=== PATIENT | female | born 1965 | race Hispanic/Latino ===

== ENCOUNTER → 2019-02-06 | Day surgery (SDC) | payer BC ==
[2019-02-04 15:57] LABS: BASOPHILS # (AUTO) 0.1 (0.0-0.1); BASOPHILS % 0.6 % (0.0-1.0); EOSINOPHILS # (AUTO) 0.1 (0.0-0.4); EOSINOPHILS % 0.7 % (0.0-6.0); HEMATOCRIT 42.3 % (34.2-44.1); HEMOGLOBIN 14.1 g/dL (12.0-16.0); LYMPHOCYTES # (AUTO) 3.4 (1.0-3.2); LYMPHOCYTES % 33.2 % (18.0-39.1); MEAN CORPUSCULAR HEMOGLOBIN 30.2 pg (28-32); MEAN CORPUSCULAR HGB CONC 33.3 g/dL (31-35); MEAN CORPUSCULAR VOLUME 90.6 fL (81-99); MONOCYTES # (AUTO) 0.5 (0.2-0.8); MONOCYTES % 4.8 % (4.4-11.3); NEUTROPHILS # (AUTO) 6.2 (2.1-6.9); NEUTROPHILS % 60.5 % (38.7-80.0); PLATELET COUNT 257 x10e3/uL (140-360); RED BLOOD COUNT 4.67 x10e6/uL (3.6-5.1); RED CELL DISTRIBUTION WIDTH 11.9 % (11.7-14.4)
--- NOTE | 2019-02-04 16:13 | Diagnostic Imaging Report ---
EXAMINATION: PA and lateral views of the chest. COMPARISON: None CLINICAL HISTORY: Preoperative study for urological procedure DISCUSSION: Lines/tubes: None. Lungs: The lungs are well inflated and clear. There is no evidence of pneumonia or pulmonary edema. Pleura: There is no pleural effusion or pneumothorax. Heart and mediastinum: The cardiomediastinal silhouette is normal. Bones and soft tissues: No acute bony abnormalities. Degenerative changes in the thoracic spine. Surgical clips project over the right upper quadrant of the abdomen compatible with cholecystectomy. IMPRESSION: No acute cardiopulmonary abnormalities. Signed by: Dr. Dwayne Zamudio M.D. on 02/04/2019 4:09 PM
[2019-02-04 16:16] LABS: ANION GAP 13.9 mmol/L (8-16); BLOOD UREA NITROGEN 10 mg/dL (7-26); BUN/CREATININE RATIO 13 (6-25); CALCIUM 9.8 mg/dL (8.4-10.2); CARBON DIOXIDE 25 mmol/L (22-29); CHLORIDE 105 mmol/L (98-107); CREATININE, SERUM 0.76 mg/dL (0.57-1.11); EST GLOMERULAR FILTRATION RATE > 60 ML/MIN (60-); GLUCOSE 99 mg/dL (74-118); POTASSIUM 3.9 mmol/L (3.5-5.1); SODIUM 140 mmol/L (136-145)
[~2019-02-06] MED LIST: DEXAMETHASONE SOD PHOS INJ 4 MG/ML VIAL ONE; FENTANYL CITRATE/PF 100MCG/2 ML INJ ONE; IOPAMIDOL 610MG/1ML 300 MG/ML VIAL IV ONE; LEVAQUIN500 MG PO; LEVOFLOXACIN 500MG/D5W 100ML 100 ML IV ONE; LIDOCAINE HCL 2% LOCAL INJ 5 ML SDV VIAL INJ ONE; OMEPRAZOLE40 MG PO; ONDANSETRON HCL INJ 2MG/ML 2ML 2 MG/ML VIAL ONE; PROPOFOL IV EMULSION 10 MG/ML 20 ML VIAL ONE; SEVOFLURANE INHAL SOLN 250 ML PEN BTL ONE
--- OUTSIDE RECORDS SUMMARY | 2019-02-06 07:32 | XMS REPORT ---
Author Author [facility] Address Unknown Phone Unavailable Care Team Providers Care Adaptive Physical Educator Name Role Phone Addie JONES Unavailable Unavailable Payers Payer Name Policy Type Policy Number Effective Date Expiration Date Problems This patient has no known problems. Allergies, Adverse Reactions, Alerts Allergy Name Allergy Type Status Severity Reaction(s) Onset Date Inactive Date Treating Clinician Comments No Known Allergies DA Active U 2018-11-04 00:00:00 No Known Contrast Allergies DA Active U 2002-12-30 00:00:00 No Known Drug Allergies DA Active U 2002-12-30 00:00:00 No Known Food Allergies DA Active U 2002-12-30 00:00:00 No Known Other Allergies DA Active U 2002-12-30 00:00:00 No Known Drug Intolerances DA Active U 2002-12-19 00:00:00 Medications This patient has no known medications. Results Test Description Test Time Test Comments Text Results Atomic Results Result Comments CHEST 2 VIEWS 2019-02-04 16:04:00 [place] [address] Patient Name: SAMANTHA ESPOSITO MR #: [id number] : 1965 Age/Sex: 53/F Req #: [id number] Adm Physician: Ordered by: PATRIC JONES MD Report #: [id number] Location: OR Room/Bed: Procedure: [id number] DX/CHEST 2 VIEWS Exam Date: 02/04/19 Exam Time: 1550 REPORT STATUS: Signed EXAMINATION: PA and lateral views of the chest. COMPARISON: None CLINICAL HISTORY: Preoperative study for urological procedure DISCUSSION: Lines/tubes: None. Lungs: The lungs are well inflated and clear. There is no evidence of pneumonia or pulmonary edema. Pleura: There is no pleural effusion or pneumothorax. Heart and mediastinum: The cardiomediastinal silhouette is normal. Bones and soft tissues: No acute bony abnormalities. Degenerative changes in the thoracic spine. Surgical clips project over the right upper quadrant of the abdomen compatible with cholecystectomy. IMPRESSION: No acute cardiopulmonary abnormalities. Signed by: Dr. Anurag Ochoa M.D. on 02/04/2019 4:09 PM Dictated By: ANURAG OCHOA MD 1609 Transcribed By: ISIDORO on 02/04/19 1609 COPY TO: PATRIC JONES MD COMPREHENSIVE METABOLIC PANEL 2018-11-04 21:49:00 SODIUM (test code=NA) 140 mmol/L 136-145 POTASSIUM (test code=K) 4.3 mmol/L 3.5-5.1 CHLORIDE (test code=CL) 108.8 mmol/L 98-107 CARBON DIOXIDE (test code=CO2) 25.0 mmol/L 21-32 ANION GAP (test code=GAP) 10.5 10-20 GLUCOSE (test code=GLU) 105 mg/dL 74-106 BLOOD UREA NITROGEN (test code=BUN) 12 mg/dL 7-18 GLOMERULAR FILTRATION RATE (test code=GFR) > 60 mL/min >=60 Estimated GFR by using Modified MDRD formula.Chronic kidney disease is defined as either kidney damageor GFR <60 mL/min/1.73 m2 for >3 months. CREATININE (test code=CREAT) 0.70 mg/dL 0.55-1.02 Note change in reference range due to change in reagent. BUN/CREATININE RATIO (test code=BUN/CREA) 17.1 10-20 TOTAL PROTEIN (test code=PROT) 7.6 gram/dL 6.4-8.2 ALBUMIN (test code=ALB) 3.8 g/dL 3.4-5.0 GLOBULIN (test code=GLOB) 3.8 gram/dL 2.7-4.2 ALBUMIN/GLOBULIN RATIO (test code=A/G) 1.0 0.75-1.50 CALCIUM (test code=CA) 9.0 mg/dL 8.5-10.1 BILIRUBIN TOTAL (test code=BILT) 0.40 mg/dL 0.0-1.0 SGOT/AST (test code=AST) 22 IUnit/L 15-37 SGPT/ALT (test code=ALT) 30 IUnit/L 12-78 ALKALINE PHOSPHATASE TOTAL (test code=ALKP) 145 IUnit/L 45-117 Note change in reference range due to change in reagent. [id number] 21:49:00* Test Item Value Reference Range Comments PHOSPHORUS (test code=PHOS) 3.5 mg/dL 2.5-4.9 [id number] 21:49:00* Test Item Value Reference Range Comments MAGNESIUM (test code=MAG) 2.4 mg/dL 1.8-2.4 HCG SERUM [id number] 21:49:00* Test Item Value Reference Range Comments HCG SERUM QUAL (test code=HCGQL) NEGATIVE NEGATIVE This HCGQL test is NOT applicable for MALE patients.Check with nurse about probable order error.If Tumor Marker Test needed, nurse should order test "HCGTU"(Test #550.33975) COMPREHENSIVE METABOLIC [id number] 20:17:00* Test Item Value Reference Range Comments SODIUM (test code=NA) mmol/L 136-145 POTASSIUM (test code=K) mmol/L 3.5-5.1 CHLORIDE (test code=CL) mmol/L 98-107 CARBON DIOXIDE (test code=CO2) mmol/L 21-32 ANION GAP (test code=GAP) 10-20 GLUCOSE (test code=GLU) mg/dL 74-106 BLOOD UREA NITROGEN (test code=BUN) mg/dL 7-18 GLOMERULAR FILTRATION RATE (test code=GFR) mL/min >=60 CREATININE (test code=CREAT) mg/dL 0.55-1.02 BUN/CREATININE RATIO (test code=BUN/CREA) 10-20 TOTAL PROTEIN (test code=PROT) gram/dL 6.4-8.2 ALBUMIN (test code=ALB) g/dL 3.4-5.0 GLOBULIN (test code=GLOB) gram/dL 2.7-4.2 ALBUMIN/GLOBULIN RATIO (test code=A/G) 0.75-1.50 CALCIUM (test code=CA) mg/dL 8.5-10.1 BILIRUBIN TOTAL (test code=BILT) mg/dL 0.0-1.0 SGOT/AST (test code=AST) IUnit/L 15-37 SGPT/ALT (test code=ALT) IUnit/L 12-78 ALKALINE PHOSPHATASE TOTAL (test code=ALKP) IUnit/L 45-117 [id number] 20:17:00* Test Item Value Reference Range Comments PHOSPHORUS (test code=PHOS) mg/dL 2.5-4.9 [id number] 20:17:00* Test Item Value Reference Range Comments MAGNESIUM (test code=MAG) mg/dL 1.8-2.4 HCG SERUM [id number] 20:17:00* Test Item Value Reference Range Comments HCG SERUM QUAL (test code=HCGQL) NEGATIVE NEGATIVE This HCGQL test is NOT applicable for MALE patients.Check with nurse about probable order error.If Tumor Marker Test needed, nurse should order test "HCGTU"(Test #550.00362) PROTHROMBIN [id number] 20:11:00* Test Item Value Reference Range Comments PROTHROMBIN TIME PATIENT (test code=PTP) 11.4 seconds 9.0-14.0 INTERNATIONAL NORMAL RATIO (test code=INR) 1.0 0.8-1.2 The therapeutic range for oral anticoagulant therapy formost indications is an international normalized ratio (INR)of between 2.0 and 3.0. The recommended therapeutic INRrange for various clinical situations is listed below: Clinical Situation INR range Pulmonary e mbolism treatment (2.0-3.0)Venous thrombosis treatmentVenous thrombosis prophylaxis (high risk surgery)Prevention of systemic embolism from: Acute myocardial infarction Valvular heart disease Atrial fibrillation Mechanical prosthetic heart valves (2.5-3.5) IS PATIENT ON ANTICOAGULANTS? NJBC W/AUTO [id number] 20:01:00* Test Item Value Reference Range Comments WHITE BLOOD CELL (test code=WBC) 13.0 K/mm3 4.5-12.5 RED BLOOD CELL (test code=RBC) 5.17 mill/mm3 3.7-5.2 HEMOGLOBIN (test code=HGB) 14.7 gram/dL 11.5-15.5 HEMATOCRIT (test code=HCT) 47.0 % 36.0-46.0 MEAN CELL VOLUME (test code=MCV) 90.9 fL 80-98 MEAN CELL HGB (test code=MCH) 28.4 picogram 27.0-33.0 MEAN CELL HGB CONCETRATION (test code=MCHC) 31.3 gram/dL 33.0-36.0 RED CELL DISTRIBUTION WIDTH (test code=RDW) 12.0 % 11.6-16.2 RED CELL DISTRIBUTION WIDTH SD (test code=RDW-SD) 39.8 fL 37.0-51.0 PLATELET COUNT (test code=PLT) 275 K/mm3 150-450 MEAN PLATELET VOLUME (test code=MPV) 9.7 fL 6.7-11.0 NEUTROPHIL % (test code=NT%) 63.5 % 39.0-69.0 IMMATURE GRANULOCYTE % (test code=IG%) 0.5 % 0.0-5.0 LYMPHOCYTE % (test code=LY%) 30.8 % 25.0-55.0 MONOCYTE % (test code=MO%) 4.2 % 0.0-10.0 EOSINOPHIL % (test code=EO%) 0.5 % 0.0-5.0 BASOPHIL % (test code=BA%) 0.5 % 0.0-1.0 NUCLEATED RBC % (test code=NRBC%) 0.0 % 0-0 NEUTROPHIL # (test code=NT#) 8.25 K/mm3 1.8-7.7 IMMATURE GRANULOCYTE # (test code=IG#) 0.07 x10 3/uL 0-0.03 LYMPHOCYTE # (test code=LY#) 4.00 K/mm3 1.0-5.0 MONOCYTE # (test code=MO#) 0.54 K/mm3 0-0.8 EOSINOPHIL # (test code=EO#) 0.06 K/mm3 0.0-0.5 BASOPHIL # (test code=BA#) 0.07 K/mm3 0.0-0.2 NUCLEATED RBC # (test code=NRBC#) 0.00 K/mm3 0.0-0.1 MANUAL DIFF REQUIRED (test code=MDIFF) NO
[2019-02-06 12:45] VITALS: BP 132/84
--- NOTE | 2019-02-16 15:27 | Operative Report ---
DATE OF PROCEDURE: 02/06/2019 SURGEON: Long Rondon MD PREOPERATIVE DIAGNOSIS: Left distal ureteral stones. POSTOPERATIVE DIAGNOSIS: Left distal ureteral stones. OPERATIVE PROCEDURE PERFORMED: 1. Cystoscopy. 2. Left retrograde pyelogram. 3. Left ureteroscopy with laser lithotripsy. 4. Placement of left ureteral stent. ANESTHESIA: General anesthesia. ESTIMATED BLOOD LOSS: Minimal. INDICATIONS: Ms. Oneyda Chavarria is a 53-year-old woman who recently presented with left flank pain and was found to have three large stones in her left distal ureter. She now presents for definitive surgical management of this problem. PROCEDURE IN DETAIL: The patient was brought in the operating room, placed in supine position. After administration of general anesthesia, she was placed in the dorsal lithotomy position and prepped and draped in usual sterile fashion. Cystourethroscopy was performed using 21-Z[place]ian cystoscope. The anterior and posterior urethra were noted to be normal. The bladder was entered without difficulty. Upon entrance into the bladder, the ureteral orifices were in normal anatomical position and produce clear efflux. There was stone visible at the left ureteral orifice. Using a 5-[place] open-ended catheter, left retrograde pyelogram was performed. This revealed several filling defects in the distal ureter with moderate hydronephrosis noted behind them. There were no obvious filling defects seen in the renal pelvis or in the proximal ureter. Amplatz wire was placed up into the left renal pelvis under fluoroscopic guidance and the ureter was dilated with a UroMax balloon. Rigid ureteroscopy was then performed. The large stones were broken up with the holmium laser 365 fiber and basket was used to remove all the fragments. Smaller stones were removed in situ. Repeat ureteroscopy up to the ureteropelvic junction revealed no other stones or calculi. Once all the stones were free, the ureteroscope was removed and a 6-[place]ian double pigtail stent was placed such that one coil was in the renal pelvis and the subsequent coil was in the bladder. The string was allowed to exit the urethral meatus. The patient was returned to supine position and anesthesia was reversed. She was transferred to a bed and taken to the postanesthesia care unit in good condition. Of note, the needle and instrument count were correct at the conclusion of the case. MD JUAN Diaz/BRITANY /[id number]
== END | disposition home or self-care (01) ==
LOC: OR 07:21
PROVIDERS: ATTEND Urology
DX: N20.1 Calculus of ureter (principal); N13.30 Unspecified hydronephrosis; K21.9 Gastro-esophageal reflux disease without esophagitis; K44.9 Diaphragmatic hernia without obstruction or gangrene; I44.4 Left anterior fascicular block; Z88.0 Allergy status to penicillin; Z01.810 Encounter for preprocedural cardiovascular examination; Z01.812 Encounter for preprocedural laboratory examination; Z01.818 Encounter for other preprocedural examination
CPT/HCPCS: 36415; 52356; 71046; 74420; 80048; 85025; 88300; 93005; C1758; C2625; J1100; J1956; J2001; J2405; J2704; Q9967; J3010

== ENCOUNTER 2019-02-16 03:07 | Emergency (ER) | payer BC, OTHER ==
[~2019-02-16] VITALS: Ht 154.9 cm; Wt 73.0 kg
[~2019-02-16 03:07] MED LIST changes: -DEXAMETHASONE SOD PHOS INJ 4 MG/ML VIAL ONE; -FENTANYL CITRATE/PF 100MCG/2 ML INJ ONE; -IOPAMIDOL 610MG/1ML 300 MG/ML VIAL IV ONE; -LEVAQUIN500 MG PO; -LEVOFLOXACIN 500MG/D5W 100ML 100 ML IV ONE; -LIDOCAINE HCL 2% LOCAL INJ 5 ML SDV VIAL INJ ONE; -ONDANSETRON HCL INJ 2MG/ML 2ML 2 MG/ML VIAL ONE; -PROPOFOL IV EMULSION 10 MG/ML 20 ML VIAL ONE; -SEVOFLURANE INHAL SOLN 250 ML PEN BTL ONE
[2019-02-16] MEDS ORDERED: HYDROCODONE/APAP 10MG-325MG TAB PO ONE (03:30)
[2019-02-16 03:37] LABS: BILIRUBIN,URINE SMALL (NEGATIVE); CLARITY,URINE SL CLOUDY (CLEAR); COLOR,URINE RED (YELLOW); KETONES,URINE NEGATIVE (NEGATIVE); LEUKOCYTE ESTERASE ,URINE LARGE (NEGATIVE); NITRITE,URINE POSITIVE (NEGATIVE); URINE UROBILINOGEN 0.2 mg/dL (0.2 - 1)
[2019-02-16 03:38] LABS: PROTEIN,URINE DIPSTICK 3+ (NEGATIVE); RBC,URINE 21-50 /HPF (0-5)
[2019-02-16 03:39] LABS: BACTERIA,URINE FEW /HPF; EPITHELIAL CELLS,URINE MODERATE /LPF
--- NOTE | 2019-02-16 05:14 | Diagnostic Imaging Report ---
Exam: Abdominal film Clinical History: Kidney stone Comparison: None. DISCUSSION: Left ureteral stent. No calculus along the course. 2 mm calculus left kidney. Pelvic phlebolith. IMPRESSION: Left ureteral stent. No calculus along the course. Signed by: Dr. Ronald Arana M.D. on 02/16/2019 5:11 AM
[2019-02-16] MEDS ORDERED: LEVAQUIN500 MG PO (06:21)
== END 2019-02-16 07:01 | disposition home or self-care (01) ==
LOC: ER 03:07
DX: M54.5 Low back pain (principal); N20.0 Calculus of kidney; N30.91 Cystitis, unspecified with hematuria
CPT/HCPCS: 74018; 81001; 87086; 87186; 99283